=== PATIENT | male | born 1970 ===

== ENCOUNTER → 2017-12-17 | Outpatient (CLI) | payer OTHER | LOC: LAB 18:17 → LAB SHORT 18:17 | DX: R21 Rash and other nonspecific skin eruption (principal); D22.5 Melanocytic nevi of trunk; L91.8 Other hypertrophic disorders of the skin | CPT/HCPCS: 87070; 87077; 87147; 87186; 87205 ==

== ENCOUNTER → 2017-12-17 | Outpatient (CLI) | payer OTHER | LOC: LAB SHORT 15:22 → PLD 15:22 | DX: R21 Rash and other nonspecific skin eruption (principal); L30.9 Dermatitis, unspecified | CPT/HCPCS: 88312 ==